=== PATIENT | female | born 1990 | race African-American/Black ===

== ENCOUNTER 2020-01-09 10:55 | Inpatient (IN) | payer BC ==
[~2020-01-09] VITALS: Ht 165.1 cm; Wt 87.6 kg
[2020-01-09] VITALS (17 sets, daily range): BP systolic 107–140; BP diastolic 61–98
[2020-01-09] MEDS ORDERED: ONDANSETRON HCL 4MG/2ML INJ IV STA (11:49)
[2020-01-09] MEDS ORDERED: KETOROLAC 30MG/ML VIAL IV STA (11:49)
[2020-01-09 11:57] LABS: BASOPHILS % 0.2 % (0.0-2.0); EOSINOPHILS % 1.5 % (0.0-5.0); HEMATOCRIT. 36.2 % (36.0-48.0); HEMOGLOBIN. 11.9 g/dL (12.0-16.0); LYMPHOCYTES % 18.5 % (20.0-50.0); MEAN CORPUSCULAR HEMOGLOBIN 26.6 pg (28.0-32.0); MEAN CORPUSCULAR VOLUME 80.8 fL (81.0-99.0); MEAN PLATELET VOLUME 8.3 fl (7.4-10.4); MONOCYTES % 7.6 % (2.0-8.0); NEUTROPHILS % 72.2 % (40.0-76.0); PLATELET 348 x1000/uL (130-400); RED BLOOD CELL COUNT 4.48 mill/uL (4.2-5.4); RED CELL DISTRIBUTION WIDTH 15.4 % (11.6-14.6)
[2020-01-09] MEDS ORDERED: SODIUM CHLORIDE 0.9% 1,000 ML IV ONE (12:00)
[2020-01-09 12:06] LABS: CHLORIDE 106 mEq/L (98-107)
[2020-01-09 12:10] LABS: PARTIAL THROMBOPLASTIN TIME 31.2 sec (23.4-31.0); PROTHROMBIN TIME 10.1 sec (9.6-11.0)
[2020-01-09 12:19] LABS: HCG SCREEN NEGATIVE
[2020-01-09] MEDS ORDERED: GADOTERATE MEGLUMINE 5 MMOL/10 ML VIAL IV ONE (12:25)
[2020-01-09] MEDS ORDERED: DEXAMETHASONE 10 MG/ML VIAL IV ONE (14:00)
[2020-01-09] MEDS ORDERED: LEVETIRACETAM 500MG PREMIX 100 ML IV ONE (14:00)
[2020-01-09] MEDS ORDERED: MORPHINE SULFATE 2 MG/ML CPJ (NOT FOR IM USE) IV PRN (16:30)
[2020-01-09] MEDS ORDERED: DEXT 5%/0.45% NACL KCL 20MEQ/L 1,000 ML IV ONE (17:00)
[2020-01-09 19:36] LABS: HEMATOCRIT 35.5 % (36.0-48.0); HEMOGLOBIN 11.7 g/dL (12.0-16.0); MEAN CORPUSCULAR HEMOGLOBIN 26.5 pg (28.0-32.0); MEAN CORPUSCULAR VOLUME 80.7 fL (81.0-99.0); PLATELET 342 x1000/uL (130-400); RED CELL DISTRIBUTION WIDTH 15.3 % (11.6-14.6)
[2020-01-09 19:48] LABS: CHLORIDE 109 mEq/L (98-107)
[2020-01-09] MEDS: LEVETIRACETAM 500MG PREMIX 100 ML IV SCH (20:24)
[2020-01-09] MEDS: FAMOTIDINE 20MG/2ML VIAL IV SCH (20:24)
[2020-01-09] MEDS ORDERED: METHYLPREDNISOLONE SOD SUCC 125 MG/2 ML VIAL IV SCH (22:00)
[2020-01-09] MEDS: DEXAMETHASONE 4MG/ML 1ML VIAL IV SCH (23:32)
[2020-01-10] VITALS (72 sets, daily range): BP systolic 71–147; BP diastolic 47–98
[2020-01-10] MEDS: DEXT 5%/LACTATED RINGERS 1,000 ML IV SCH ×2 (03:30→11:40)
[2020-01-10] MEDS ORDERED: THROMBIN (BOVINE) 5000 UNITS/VIAL TOP ONE ×2 (06:20→06:39)
[2020-01-10] MEDS ORDERED: BACITRACIN 50,000 UNITS/VIAL ONE (06:20)
[2020-01-10] MEDS ORDERED: BACITRACIN 15GM TUBE TOP ONE (06:20)
[2020-01-10] MEDS ORDERED: SODIUM CHLORIDE 0.9% INJ 10ML FLUSH IVF ONE (06:20)
[2020-01-10] MEDS: DEXAMETHASONE 4MG/ML 1ML VIAL IV SCH ×4 (06:40→23:06)
[2020-01-10] MEDS ORDERED: FENTANYL CITRATE/PF 50MCG/ML 2ML VIAL ONE ×2 (07:03→08:23)
[2020-01-10] MEDS ORDERED: NEOSTIGMINE METHYLSULFATE 1MG/ML 10 ML VIAL ONE (07:04)
[2020-01-10] MEDS ORDERED: GLYCOPYRROLATE 0.2 MG/ML 2ML VIAL ONE ×2 (07:04→09:41)
[2020-01-10] MEDS ORDERED: PROPOFOL 200MG/20ML VIAL IV ONE (07:04)
[2020-01-10] MEDS ORDERED: MIDAZOLAM HCL 2 MG/2 ML VIAL ONE (07:04)
[2020-01-10] MEDS ORDERED: ROCURONIUM BROMIDE 10MG/ML VIAL 5ML IV ONE (07:04)
[2020-01-10] MEDS ORDERED: ONDANSETRON HCL 4MG/2ML INJ ONE (07:17)
[2020-01-10] MEDS ORDERED: DEXAMETHASONE 4MG/ML 1ML VIAL ONE (07:17)
[2020-01-10] MEDS ORDERED: HYDROMORPHONE HCL/PF 2MG/ML CPJ IV PRN ×2 (08:45→09:00)
[2020-01-10] MEDS ORDERED: LABETALOL 5MG/ML SYR 20 MG/4 ML SYRINGE IV PRN ×2 (08:45→09:00)
[2020-01-10] MEDS ORDERED: MEPERIDINE HCL/PF 25MG/ML CPJ IV PRN ×2 (08:45→09:00)
[2020-01-10] MEDS ORDERED: ONDANSETRON HCL 4MG/2ML INJ IV PRN ×2 (08:45→09:00)
[2020-01-10] MEDS ORDERED: PHENYTOIN SODIUM 250MG/5ML VIAL IV ONE (09:49)
[2020-01-10] MEDS: MORPHINE SULFATE 4 MG/ML CPJ (NOT FOR IM USE) IV PRN ×5 (10:34→21:07)
[2020-01-10] MEDS: NICARDIPINE 100 MG in SODIUM CHLORIDE 0.9% 60 ML IV PRN (11:31)
[2020-01-10] MEDS: FOSPHENYTOIN SODIUM 100 MG in SODIUM CHLORIDE 0.9% 50 ML IV SCH ×2 (11:32→20:07)
[2020-01-10] MEDS: LEVETIRACETAM 500MG PREMIX 100 ML IV SCH ×2 (11:33→21:00)
[2020-01-10] MEDS: FAMOTIDINE 20MG/2ML VIAL IV SCH ×2 (11:33→20:07)
[2020-01-10] MEDS ORDERED: CEFAZOLIN SODIUM 1000MG/VIAL IV SCH (14:00)
[2020-01-10] MEDS: CEFAZOLIN 1000MG PREMIX 50 ML IV SCH ×2 (15:05→22:06)
[2020-01-11] VITALS (100 sets, daily range): BP systolic 73–228; BP diastolic 53–205
[2020-01-11] MEDS: MORPHINE SULFATE 4 MG/ML CPJ (NOT FOR IM USE) IV PRN ×5 (02:01→23:51)
[2020-01-11] MEDS: FOSPHENYTOIN SODIUM 100 MG in SODIUM CHLORIDE 0.9% 50 ML IV SCH ×3 (03:00→20:48)
[2020-01-11 05:18] LABS: HEMATOCRIT. 31.4 % (36.0-48.0); HEMOGLOBIN. 10.3 g/dL (12.0-16.0); MEAN CORPUSCULAR HEMOGLOBIN 26.5 pg (28.0-32.0); MEAN CORPUSCULAR VOLUME 81.1 fL (81.0-99.0); MEAN PLATELET VOLUME 8.3 fl (7.4-10.4); PLATELET 369 x1000/uL (130-400); RED BLOOD CELL COUNT 3.87 mill/uL (4.2-5.4); RED CELL DISTRIBUTION WIDTH 15.4 % (11.6-14.6)
[2020-01-11 05:24] LABS: CHLORIDE 110 mEq/L (98-107)
[2020-01-11] MEDS: DEXAMETHASONE 4MG/ML 1ML VIAL IV SCH ×4 (06:28→23:45)
[2020-01-11] MEDS: CEFAZOLIN 1000MG PREMIX 50 ML IV SCH ×3 (06:29→22:43)
[2020-01-11 08:15] LABS: PLATELET ESTIMATE NORMAL
[2020-01-11] MEDS: LEVETIRACETAM 500MG PREMIX 100 ML IV SCH ×2 (08:18→21:23)
[2020-01-11] MEDS: DEXT 5%/LACTATED RINGERS 1,000 ML IV SCH ×2 (08:19→17:11)
[2020-01-11] MEDS: FAMOTIDINE 20MG/2ML VIAL IV SCH ×2 (08:19→21:23)
[2020-01-11] MEDS: NICARDIPINE 100 MG in SODIUM CHLORIDE 0.9% 60 ML IV PRN (21:35)
[2020-01-12] VITALS (68 sets, daily range): BP systolic 104–136; BP diastolic 40–97
[2020-01-12 00:34] LABS: CLARITY URINE CLEAR (CLEAR); COLOR URINE YELLOW (YELLOW); KETONES URINE NEGATIVE (NEGATIVE); LEUKOCYTE ESTERASE URINE TRACE (NEGATIVE); NITRITE URINE NEGATIVE (NEGATIVE); OCCULT BLOOD URINE 3+ (NEGATIVE); PH URINE 7.5 (4.5-8.0); PROTEIN URINE NEGATIVE (NEGATIVE); SPECIFIC GRAVITY URINE 1.024 (1.005-1.030); UROBILINOGEN URINE 0.2 E.U./dL (0.2-1.0)
[2020-01-12] MEDS: FOSPHENYTOIN SODIUM 100 MG in SODIUM CHLORIDE 0.9% 50 ML IV SCH ×3 (03:38→20:02)
[2020-01-12 05:40] LABS: HEMATOCRIT. 29.5 % (36.0-48.0); HEMOGLOBIN. 9.6 g/dL (12.0-16.0); MEAN CORPUSCULAR HEMOGLOBIN 26.7 pg (28.0-32.0); MEAN PLATELET VOLUME 8.6 fl (7.4-10.4); PLATELET 300 x1000/uL (130-400); RED CELL DISTRIBUTION WIDTH 15.4 % (11.6-14.6)
[2020-01-12 05:45] LABS: CHLORIDE 107 mEq/L (98-107)
[2020-01-12] MEDS: DEXAMETHASONE 4MG/ML 1ML VIAL IV SCH ×3 (05:46→17:14)
[2020-01-12] MEDS: CEFAZOLIN 1000MG PREMIX 50 ML IV SCH (05:46)
[2020-01-12] MEDS: MORPHINE SULFATE 4 MG/ML CPJ (NOT FOR IM USE) IV PRN ×4 (06:06→20:03)
[2020-01-12] MEDS: FAMOTIDINE 20MG/2ML VIAL IV SCH ×2 (08:30→20:56)
[2020-01-12] MEDS: LEVETIRACETAM 500MG PREMIX 100 ML IV SCH ×2 (08:30→20:56)
[2020-01-12] MEDS: DEXT 5%/LACTATED RINGERS 1,000 ML IV SCH (10:04)
[2020-01-12 12:19] LABS: PLATELET ESTIMATE NORMAL
[2020-01-12] MEDS: DOCUSATE SODIUM 100MG CAPSULE PO SCH (17:15)
[2020-01-12 20:40] LABS: HEMATOCRIT. 29.5 % (36.0-48.0); HEMOGLOBIN. 9.7 g/dL (12.0-16.0); MEAN CORPUSCULAR HEMOGLOBIN 26.5 pg (28.0-32.0); MEAN PLATELET VOLUME 8.4 fl (7.4-10.4); PLATELET 298 x1000/uL (130-400); RED BLOOD CELL COUNT 3.65 mill/uL (4.2-5.4); RED CELL DISTRIBUTION WIDTH 15.3 % (11.6-14.6)
[2020-01-12 21:00] LABS: CHLORIDE 106 mEq/L (98-107)
[2020-01-12 21:40] LABS: PLATELET ESTIMATE NORMAL
[2020-01-13] VITALS (50 sets, daily range): BP systolic 96–136; BP diastolic 47–86
[2020-01-13] MEDS: DEXAMETHASONE 4MG/ML 1ML VIAL IV SCH ×4 (00:06→17:44)
[2020-01-13] MEDS: DEXT 5%/LACTATED RINGERS 1,000 ML IV SCH (02:27)
[2020-01-13] MEDS: FOSPHENYTOIN SODIUM 100 MG in SODIUM CHLORIDE 0.9% 50 ML IV SCH ×3 (04:03→19:33)
[2020-01-13] MEDS: MORPHINE SULFATE 4 MG/ML CPJ (NOT FOR IM USE) IV PRN ×4 (05:51→20:01)
[2020-01-13] MEDS: DOCUSATE SODIUM 100MG CAPSULE PO SCH ×2 (09:22→17:42)
[2020-01-13] MEDS: FAMOTIDINE 20MG/2ML VIAL IV SCH ×2 (09:22→20:01)
[2020-01-13] MEDS: LEVETIRACETAM 500MG PREMIX 100 ML IV SCH ×2 (09:23→21:04)
[2020-01-14] VITALS (48 sets, daily range): BP systolic 104–133; BP diastolic 45–94
[2020-01-14] MEDS: DEXAMETHASONE 4MG/ML 1ML VIAL IV SCH ×5 (00:03→23:18)
[2020-01-14] MEDS: MORPHINE SULFATE 4 MG/ML CPJ (NOT FOR IM USE) IV PRN ×7 (02:07→21:21)
[2020-01-14] MEDS: FOSPHENYTOIN SODIUM 100 MG in SODIUM CHLORIDE 0.9% 50 ML IV SCH ×3 (03:18→19:58)
[2020-01-14] MEDS: FAMOTIDINE 20MG/2ML VIAL IV SCH ×2 (08:19→21:20)
[2020-01-14] MEDS: DOCUSATE SODIUM 100MG CAPSULE PO SCH ×2 (08:20→17:24)
[2020-01-14] MEDS: LEVETIRACETAM 500MG PREMIX 100 ML IV SCH ×2 (08:20→21:23)
[2020-01-14] MEDS ORDERED: GADOTERATE MEGLUMINE 5 MMOL/10 ML VIAL IV ONE (10:37)
[2020-01-14 17:49] LABS: TOTAL IRON BINDING CAPACITY 324 ug/dL (250-450)
[2020-01-15] VITALS (37 sets, daily range): BP systolic 106–132; BP diastolic 57–83
[2020-01-15] MEDS: FOSPHENYTOIN SODIUM 100 MG in SODIUM CHLORIDE 0.9% 50 ML IV SCH ×3 (04:12→21:21)
[2020-01-15] MEDS: DEXAMETHASONE 4MG/ML 1ML VIAL IV SCH ×4 (05:02→23:09)
[2020-01-15] MEDS: MORPHINE SULFATE 4 MG/ML CPJ (NOT FOR IM USE) IV PRN ×5 (05:03→23:21)
[2020-01-15 06:08] LABS: BASOPHILS % 0.1 % (0.0-2.0); CHLORIDE 103 mEq/L (98-107); EOSINOPHILS % 0.3 % (0.0-5.0); HEMATOCRIT. 33.3 % (36.0-48.0); HEMOGLOBIN. 10.6 g/dL (12.0-16.0); LYMPHOCYTES % 11.8 % (20.0-50.0); MEAN CORPUSCULAR VOLUME 81.6 fL (81.0-99.0); MEAN PLATELET VOLUME 8.2 fl (7.4-10.4); MONOCYTES % 5.6 % (2.0-8.0); NEUTROPHILS % 82.2 % (40.0-76.0); PLATELET 396 x1000/uL (130-400); RED BLOOD CELL COUNT 4.08 mill/uL (4.2-5.4); RED CELL DISTRIBUTION WIDTH 15.3 % (11.6-14.6)
[2020-01-15] MEDS: FAMOTIDINE 20MG/2ML VIAL IV SCH ×2 (09:24→21:21)
[2020-01-15] MEDS: DOCUSATE SODIUM 100MG CAPSULE PO SCH (09:25)
[2020-01-15] MEDS: LEVETIRACETAM 500MG PREMIX 100 ML IV SCH ×2 (09:33→21:21)
[2020-01-15] MEDS: FERROUS SULFATE 325MG TABLET PO SCH ×2 (12:14→18:04)
[2020-01-15] MEDS: DOCUSATE SODIUM 250MG CAPSULE PO SCH (12:14)
[2020-01-15] MEDS: HYDROCODONE/ACETAMINOPHEN 5/325MG TABLET PO PRN (15:25)
[2020-01-16] VITALS (7 sets, daily range): BP systolic 107–128; BP diastolic 67–88
[2020-01-16] MEDS: FOSPHENYTOIN SODIUM 100 MG in SODIUM CHLORIDE 0.9% 50 ML IV SCH ×2 (04:34→12:23)
[2020-01-16] MEDS: DEXAMETHASONE 4MG/ML 1ML VIAL IV SCH ×2 (06:28→12:23)
[2020-01-16] MEDS: MORPHINE SULFATE 4 MG/ML CPJ (NOT FOR IM USE) IV PRN ×2 (06:42→12:37)
[2020-01-16] MEDS: LEVETIRACETAM 500MG PREMIX 100 ML IV SCH (09:49)
[2020-01-16] MEDS: DOCUSATE SODIUM 250MG CAPSULE PO SCH (09:50)
[2020-01-16] MEDS: FAMOTIDINE 20MG/2ML VIAL IV SCH (09:50)
[2020-01-16] MEDS: FERROUS SULFATE 325MG TABLET PO SCH ×3 (09:50→16:50)
[2020-01-16] MEDS: HYDROCODONE/ACETAMINOPHEN 5/325MG TABLET PO PRN ×2 (10:07→17:10)
[2020-01-16] MEDS ORDERED: KEPP500 MT (12:56)
[2020-01-16] MEDS ORDERED: DOCU250C14 PO (12:56)
[2020-01-16] MEDS ORDERED: FERR325T23 PO (12:56)
[2020-01-16] MEDS ORDERED: HYDR-4001 PO (13:28)
== END 2020-01-16 18:40 | disposition home or self-care (01) | DRG 25 ==
LOC: ER 10:55 → MICUNO 14:07 → ENRESERV 14:57 → 6EST 01-15 18:32
PROVIDERS: ADMIT Ophthalmology; ATTEND Ophthalmology
PROC: 00U207Z Supplement Dura Mater with Autologous Tissue Substitute, Open Approach (ICD-10-PCS; principal; 2020-01-11)
PROC: 009600Z Drainage of Cerebral Ventricle with Drainage Device, Open Approach (ICD-10-PCS; 2020-01-11)
PROC: 00B00ZZ Excision of Brain, Open Approach (ICD-10-PCS; 2020-01-11)
DX: D49.6 Neoplasm of unspecified behavior of brain (principal); G93.6 Cerebral edema; G93.5 Compression of brain; G93.0 Cerebral cysts; D64.9 Anemia, unspecified; D72.829 Elevated white blood cell count, unspecified; G43.909 Migraine, unspecified, not intractable, without status migrainosus; Z20.828 Contact with and (suspected) exposure to other viral communicable diseases; Z79.899 Other long term (current) drug therapy; T38.0X5A Adverse effect of glucocorticoids and synthetic analogues, initial encounter
CPT/HCPCS: 36415; 70543; 70553; 71045; 80048; 80053; 81003; 82728; 82962; 83540; 83550; 84703; 85025; 85027; 86850; 86900; 86920; 87426; 88304; 88331; 93005; 97110; 97112; 97116; 97162; 97166; 97530; 97535; 99291; A9577; C1713; C1725; J0690; J1100; J1165; J1885; J1953; J2250; J2270; J2405; J2704; J2710; J3010; J3490; J7030; J7050; J7121; Q2009